=== PATIENT | male | born 1930 | race Caucasian/White ===

== ENCOUNTER 2018-12-09 14:49 | Observation (INO) | payer MEDICARE ==
--- NOTE | 2018-12-09 15:14 | ED ---
Neurological HPI - HPI Summary HPI Summary: An 88 y/o male brought in by [facility] ambulance presents to [facility] with a chief complaint of stroke like symptoms today. The patient reports right sided facial weakness. At triage he rated his pain as a 0/10 in severity. The patient denies a Hx of HTN or DM. He says that he is on medications for GERD and occasionally takes Xanax. - History of Current Complaint Chief Complaint: EDNeurologicalDeficit Stated Complaint: NEW ON SET A FIB STROKE LIKE SYMPTOMS Time Seen by Provider: 12/09/18 15:05 Hx Obtained From: Patient, EMS Onset/Duration: Sudden Onset, Started hours ago, Still Present Timing: Constant Onset Severity: Mild Current Severity: Mild Pain Intensity: 0 Pain Scale Used: 0-10 Numeric Character: Weak - right sided facial weakness Aggravating: Nothing Alleviating: Nothing Associated Signs and Symptoms: Positive: Weakness - right sided facial weakness. Negative: Fever - Allergy/Home Medications Allergies/Adverse Reactions: Allergies Allergy/AdvReac Type Severity Reaction Status Date / Time latex Allergy Unknown Verified 12/09/18 15:02 Reaction Details meloxicam Allergy Unknown Verified 12/09/18 15:02 Reaction Details Penicillins Allergy Unknown Verified 12/09/18 15:02 Reaction Details Sulfa (Sulfonamide Allergy Unknown Verified 12/09/18 15:02 Antibiotics) Reaction Details Home Medications: Home Medications ALPRAZolam [Xanax] 1 tab PO BEDTIME 12/09/18 [History Confirmed 12/09/18] Omeprazole CAP(NF) [PriLOSEC CAP(NF)] 1 cap PO DAILY 12/09/18 [History Confirmed 12/09/18] PMH/Surg Hx/FS Hx/Imm Hx Endocrine/Hematology History: Denies: Hx Diabetes Cardiovascular History: Denies: Hx Hypertension Infectious Disease History: No Infectious Disease History: Denies: Traveled Outside the [place] in Last 30 Days - Family History Known Family History: Negative: Blood Disorder - Social History Alcohol Use: None Substance Use Type: Reports: None Smoking Status (MU): Never Smoked Tobacco Review of Systems Negative: Fever Positive: Other - positive: new onset atrial fibrillation Positive: Weakness All Other Systems Reviewed And Are Negative: Yes Physical Exam - Summary Physical Exam Summary: Appearance: Well appearing, no pain distress Skin: warm, dry, reflects adequate perfusion Head/face: facial droop Eyes: EOMI, JACKELYN ENT: normal Neck: supple, non-tender Respiratory: CTA, breath sounds present Cardiovascular: RRR, pulses symmetrical Abdomen: non-tender, soft Musculoskeletal: normal, strength/ROM intact Neuro: normal, sensory motor intact, A&Ox3 Triage Information Reviewed: Yes Vital Signs On Initial Exam: Initial Vitals Temp Pulse Resp BP Pulse Ox 99.5 F 73 18 144/81 99 12/09/18 14:52 12/09/18 14:52 12/09/18 14:52 12/09/18 14:52 12/09/18 14:52 Vital Signs Reviewed: Yes Diagnostics - Vital Signs Vital Signs Temp Pulse Resp BP Pulse Ox 12/09/18 14:52 99.5 F 73 18 144/81 99 - Laboratory Lab Statement: Any lab studies that have been ordered have been reviewed, and results considered in the medical decision making process. - EKG 15:22 Cardiac Rate: NL - 63 bpm EKG Rhythm: Sinus Rhythm Summary of EKG Findings: EKG at 15:22 showed NSR at 63 bpm, no acute changes. NIH Scale - NIH Scale Level of Consciousness: Alert/Keenly Responsive Ask Patient the Month and His/Her Age: Both Correct Ask Pt to Open/Close Eyes and Summer Internship/Release Non-Paretic Hand: Both Correctly Best Gaze (Only Horizontal Eye Movement): Normal Visual Field Testing: No Visual Loss Facial Paresis-Pt to Smile & Close Eyes or Grimace Symmetry: Minor Paralysis Motor Function - Right Arm: No Drift-Holds 10 Seconds Motor Function - Left Arm: No Drift-Holds 10 Seconds Motor Function - Right Leg: No Drift-Holds 10 Seconds Motor Function - Left Leg: No Drift-Holds 10 Seconds Limb Ataxia-Must be out of Proportion to Weakness Present: Absent Sensory (Use Pinprick to Test Arms/Legs/Trunk/Face): Normal Best Language (Describe Picture, Name Items): No Aphasia Dysarthria (Read Several Words): Normal Extinction and Inattention: No Abnormality Total Score: 1 Course/Dx - Course Course Of Treatment: An 88 y/o male brought in by [facility] ambulance presents to [facility] with a chief complaint of stroke like symptoms today. The patient reports right sided facial weakness. The physical exam revealed facial droop. NIH 1. EKG at 15:22 showed NSR at 63 bpm, no acute changes. Discussed case with Dr. Aguirre, neuro, who will see the patient in the ED. He evaluated the patient in the ED. Discussed case with Dr. Gupta, hospitalist, who accepted the patient for admission. The patient is agreeable with this plan. - Differential Dx Differential Diagnoses Neuro: Positive: Somers's Palsy, Cerebrovascular Accident - Diagnoses Provider Diagnoses: CVA (cerebrovascular accident), Somers's palsy - Physician Notifications Discussed Care Of Patient With: Vanessa Aguirre Time Discussed With Above Provider: 15:14 Instructed by Provider To: MD Will See In ED - Critical Care Time Critical Care Time: 30-74 min - 30 mins Discharge - Sign-Out/Discharge Documenting (check all that apply): Patient Departure - admit Patient Received Moderate/Deep Sedation with Procedure: No - Discharge Plan Condition: Fair Disposition: ADMITTED TO [facility] Referrals: No Primary Care Phys,NOPCP [Primary Care Provider] - - Billing Disposition and Condition Condition: FAIR Disposition: Admitted to [facility] - Attestation Statements Document Initiated by Scribe: Yes Documenting Scribe: Vini Arzate Provider For Whom Scribe is Documenting (Include Credential): Franc Dinh MD Scribe Attestation: IVini, scribed for Franc Dinh MD on 12/09/18 at 1706. Scribe Documentation Reviewed: Yes Provider Attestation: The documentation as recorded by the Vini albarran accurately reflects the service I personally performed and the decisions made by me, Franc Dinh MD Status of Scribe Document: Viewed Consult Consult: At 15:[address] Gupta, hospitalist, who accepted the patient for admission.
[2018-12-09] MEDS ORDERED: Gadobenate* (CONTRAST) 529 MG/ML 10 ML SDV IV ONE (16:39)
[2018-12-09] MEDS ORDERED: ValACYclovir (*) 1 GM TAB PO ONE (17:00)
--- NOTE | 2018-12-09 17:30 | HP ---
CC: Dr. Kwon * HISTORY AND PHYSICAL: DATE OF ADMISSION: 12/09/18 PRIMARY CARE PROVIDER: Dr. Kwon. ATTENDING PHYSICIAN: Dr. Gupta.* (DICTATED BY ALEXEY DANIELLE) CHIEF COMPLAINT: Right facial droop, slurred speech. HISTORY OF PRESENT ILLNESS: Mr. Pineda is an 88-year-old male with no significant past medical history, who presented to [facility] today after stating he "felt lousy" when he awoke. He notes that his approximately 1 year ago. He has been packing up his house and planning to move into assisted living for the last approximately 4 months. He notes that he "overdid it," lifting boxes over these last 4 weeks. He states that he has had right shoulder pain for 4 weeks and has been working with Physical Therapy. He notes difficulty sleeping 2 to 3 nights ago due to shoulder pain. He was eating dinner last night and felt as if he was drooling while he was eating. He then went to bed and woke up and felt as if his right face was drooping. He also notes again that he felt lousy and also mentions trouble forming thoughts and feeling like his speech is slurred as well as a "raw throat sound" to his voice. He felt as if there was a lump in his throat without difficulty swallowing. He went to the ER this morning to [facility] where he received a workup that included EKG, which showed new-onset atrial fibrillation. He also had a CT scan of the head noncontrast that showed no acute intracranial hemorrhage. His NIH Score was 4 in the ER and he was transferred from [facility] to [facility]. At [facility], he continues to have right facial droop, he continues to have very mild slurred speech. The hospitalist team was asked to evaluate the patient for admission. PAST MEDICAL HISTORY: 1. GERD. 2. Hiatal hernia. 3. Depression/anxiety. PAST SURGICAL HISTORY: Hernia x2. HOME MEDICATIONS: 1. Omeprazole 10 mg p.o. daily. 2. Alprazolam 0.5 mg p.o. at bedtime. DRUG ALLERGIES: LATEX, rash; MELOXICAM, unknown; PENICILLIN, rash; SULFA, rash. FAMILY HISTORY: Father from heart condition, unsure what; maternal grandfather, leukemia; paternal grandfather, prostate cancer; father, bladder cancer; sister, lymphoma; mother of old age. Family history negative for CVA, diabetes. SOCIAL HISTORY: The patient denies current and former use of tobacco. The patient rarely uses alcohol, less than monthly. 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 He lives at home alone. His approximately 1 year ago. He is in the process of moving to an assisted living facility, [facility] which he plans to move to next week. In the event that he is unable to make his own medical decisions, he has appointed his niece, Janell Jimenez or his tax attorney, Álvaro Anderstereza, to be his surrogate decision makers. REVIEW OF SYSTEMS: A 10-point review of systems was performed and all the pertinent positives and negatives are in the HPI. All other systems are negative. PHYSICAL EXAMINATION GENERAL: Mr. Pineda is a well-developed, well-nourished, healthy, elderly male , who appears younger than his stated age. He is sitting comfortably in bed with the head of bed elevated. He has a noticeable right facial droop upon entering the room. He is cooperative, appropriate, and pleasant. VITAL SIGNS: Temperature 99.5 temporal, heart rate 72, respiratory rate 18, oxygen saturation 96% on room air, blood pressure 124/72. HEENT: Visual ny grossly intact. PERRL. Extraocular movements intact. Nonicteric sclerae. The right eyebrow moves, but asymmetrically. Hearing grossly intact. Oral mucous membranes are moist without lesions. Head is normocephalic, atraumatic. Right facial droop is present. NECK: Full range of motion. Trachea at midline. There is tenderness to palpation to the right side of the neck. PULMONARY: Symmetrical chest expansion without use of accessory muscles. Lungs are clear to auscultation without rhonchi, wheezes, or rales. CARDIOVASCULAR: Regular rate and rhythm with S1, S2 present without murmurs, rubs, clicks, or gallops. There is no JVD. ABDOMEN: Bowel sounds noted in all quadrants. The abdomen is soft. There is no tenderness to palpation. MUSCULOSKELETAL: Lower extremities with full range of motion without pain or deformities. Left upper extremity within normal limits. Right upper extremity with tenderness to palpation to the shoulder area and scapular area, painful range of motion with greater than 90-degree abduction. EXTREMITIES: Skin is warm and smooth bilaterally without clubbing, cyanosis, or edema. Radial and pedal pulses palpable. NEURO: The patient is awake. He is alert and oriented x3. He has a right facial droop with asymmetrical movements on the right side. Otherwise, cranial nerves are grossly intact. He is able to move all of his extremities with motor strength of 5/5 in the upper and lower extremities. Romberg intact. Steady gait with no impairments. ABY intact. DIAGNOSTIC STUDIES/LAB DATA: Obtained from [facility]. Chest x-ray: Mild right basilar discoid atelectasis, but no focal consolidation, pleural effusion , or significant pulmonary vascular congestion. CT head, impression: No acute intracranial hemorrhage, significant mass effect , or large infarct. Mild diffuse cerebral atrophy and mild probable microvascular ischemic changes. Laboratory data: WBC 9.18, RBC 4.55, HGB 13.6, HCT 42.5, MCV 93.4. Creatinine 1.2. EKG from [facility]: Normal sinus rhythm, rate 63. ASSESSMENT AND PLAN: Mr. Pineda is an 88-year-old male with no significant past medical history, who presented to the ER today with complaints of right facial droop and slurred speech. He was found to have a negative CT of the head , but an EKG that reveals atrial fibrillation. The patient will be admitted observation for: 1. Right facial droop. This appears to be more similar to Somers palsy, but cerebrovascular accident cannot be ruled out at this point. CT of the head from [facility] was negative. We will continue stroke workup with echo with bubble study, MRI of the head, MRA of the head and neck. Neuro checks q.4 hours ordered. Lipid panel, hemoglobin A1c, and B12 have been ordered. Neurology has been consulted. Dr. Aguirre recommends treatment for Somers palsy with prednisone 60 mg x7 days, valacyclovir 1000 q.8 hours x7 days. He does not recommend aspirin at this point as if this does represent stroke, it is likely cardioembolic. 2. Gastroesophageal reflux disease. Continue omeprazole. 3. Depression/anxiety. Continue alprazolam. 4. DVT prophylaxis: The patient scores 3 and is high risk. He will be placed on SCDs. 5. Code status: Do not resuscitate. We will update MOLST. TIME SPENT: Approximately 60 minutes was spent on this admission, greater than half that time was spent with the patient obtaining history, performing physical , and reviewing the plan of care. The case has been reviewed with my attending, Dr. Gutpa, who is in agreement with the plan of care. ALEXEY DANIELLE [id number]/[facility] #: [id number] PADMINI
--- NOTE | 2018-12-09 18:20 | CONS ---
NEUROLOGY CONSULTATION NOTE: DATE OF CONSULT: 12/09/18 CONSULTING PROVIDER: ALEXEY Denny REASON FOR CONSULT: Facial weakness. CHIEF COMPLAINT: Facial weakness and slurred speech. 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 The patient is and lives alone. He is getting ready to move to an assisted living facility, . He has been extremely stressed as he is moving old furniture and books around his house. Yesterday, he was drinking water when suddenly at approximately 8 p.m. noticed that he was spilling water from the side of his mouth. He has never had any similar symptoms in the past. He also noticed that he was drooling. He was having trouble chewing. He woke up this morning and noticed his voice was weak and sloppy. He has no other weakness. He denied any paresthesias. He denied any new vision loss, but does have chronic blurry vision. He is complaining of a 3- 4 day headache that is mostly localized to the right frontal and temporal region radiating to the occipital region. The headache is intermittent and he is asymptomatic at this time. The headache is usually associated with a rash, which he has been getting on and off for the last 1 month. He denied any vesicular rash. He denied any exposure to ticks. The patient had a CT of the head at [facility] that was reported to us to show no evidence of intracranial abnormality. He was found to have new-onset atrial fibrillation. The patient has been complaining of chronic fatigue for the past 4 months that worsened over the last 2 weeks. He also complains of right shoulder pain, which he has been receiving physical therapy for for the past 2 weeks. NIH Stroke Scale is 2, 1 for facial weakness and 1 for slight slurred speech. PAST MEDICAL HISTORY: New-onset atrial fibrillation, anxiety, GERD. MEDICATIONS: 1. Alprazolam 0.5 tablet at bedtime. 2. Omeprazole 1 capsule p.o. daily. ALLERGIES: LATEX, MELOXICAM, PENICILLIN, SULFA. FAMILY HISTORY: No family history of stroke or seizures. SOCIAL HISTORY: The patient denied any tobacco or alcohol use. He is . He was for 47 years. He has 2 children. REVIEW OF SYSTEMS: A 14-point review of systems was obtained and otherwise negative except for what was mentioned in the HPI. PHYSICAL EXAM: Vitals: Temperature of 97.8, pulse of 72, respiratory rate of 18, oxygen saturation of 98%, blood pressure of 124/72. General: Well- nourished, well- developed, elderly man, who is frail, but in no acute distress. Head: Normocephalic, atraumatic. Eyes: Conjunctivae/corneas are clear. ENT Examination: There is no evidence of any vesicular rash on otoscopic examination. Neck is supple and symmetrical with no carotid bruits. Lungs are clear to auscultation bilaterally, nonlabored breathing. Cardiovascular: Regular rate and rhythm with normal S1, S2. Extremities: Normal range of motion with no cyanosis. Skin: No skin lesions or lacerations. Psych: Affect is broad and normal mood. Neurological Examination: Mental Status: Awake, alert, and oriented to person, place, time, and general circumstances. He has slight slurring of speech, but it is mostly due to the facial droop on the right side and not because of a spastic dysarthria. Language including expression, naming, repetition, and comprehension were assessed and found to be normal. Cranial Nerves: Normal confrontation testing bilaterally. Pupils are mid range and reactive to light. Normal consensual response. Extraocular muscles are intact. Sensation is intact on the forehead , cheeks, and jaw region bilaterally. He has a right facial droop with weakness in eyelid closure on the right, but slightly also on the left. He has loss of wrinkling with forehead leiva on the right, weakness on the platysma muscle on the right. He is able to hear throughout the history process. Symmetrical palatal elevation. Normal strength against shoulder resistance. Tongue is symmetrical and midline with no atrophy or fasciculation. Motor Examination: No abnormal movements or pronator drift. Normal bulk and tone throughout. 5/5 strength in the upper and lower extremities bilaterally. Reflexes: Right/left, brachioradialis 2/2, biceps 2/2, triceps 3/3, patella 3/3 , ankle 2/2, plantar flexor/flexor. Initially, it was thought that his plantar had some spontaneous extension on the right, but during the examination over and over, it is mostly flexor and he is extending his toes purposefully rather than pathologically. Sensation is intact throughout. He has normal vibration at the medial malleolus. Coordination: Normal [id number] and rapid alternating movements bilaterally. Gait: Wide based, no ataxia, did not require any assistance. DIAGNOSTIC STUDIES/LAB DATA: This was not available as the patient was transferred from an outside facility. 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 On examination, the facial weakness is consistent with a lower motor neuron 7th nerve palsy. The patient was also found to be in atrial fibrillation and was admitted for further evaluation. 1. Somers's palsy causing right facial droop - I recommend starting the patient on prednisone 60 mg daily for 7 days as well as valacyclovir 1000 mg every 8 hours for the next 7 days. Please monitor for any possible vesicular rash that he may develop. Please start the patient on eye drops and nocturnal ointments to keep his eyes moist, especially when he is sleeping. Discuss eye care with the patient, especially when he sleeps, to make sure he tapes his right eye closed to prevent any corneal scarring. 2. New-onset atrial fibrillation. Further workup by the primary team. The patient may have been in atrial fibrillation for the past few months given that he has been complaining of increased fatigue. Please order vitamin B12 level. He is going to have an MRI of the brain and MRA head and neck as it has been already ordered and the patient is currently getting the study. If there is evidence of symptomatic or asymptomatic embolic stroke, the patient may need to be on anticoagulation therapy. 3. Hyperreflexia and chronic neck pain. The patient does not complain of any weakness or incontinence. I recommend outpatient evaluation for cervical spondylosis and myelopathy. He should discuss this with his PCP. We discussed fall precautions. He should discuss this with his PCP. 4. History of right shoulder pain. Continue physical therapy as an outpatient. If the MRI is negative, there are no further recommendations from the neurology standpoint. No followup is needed. Please contact us for any questions or concerns. [id number]/[facility] #: [id number] ADDENDUM: 20:08: reviewed the MRI brain and MRA head and neck. There is no evidence for acute stroke or silent acute cardio emboli. He has diffuse small white matter changes consistent with chronic small vessel ischemic changes. He will most likely require at least aspirin for his atrial fibrillation. Defer further management to the primary tea. Neurology will sign off but please call us for any questions or concerns. PADMINI
[2018-12-09] MEDS: predniSONE TAB* 20 MG PO SCH (18:38)
--- NOTE | 2018-12-09 18:47 | ECHO ---
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 History: Atrial fibrillation. New onset. Conclusions Summary: 1. Left ventricle: The cavity size is normal. Wall thickness is normal. Systolic function is normal. The estimated ejection fraction is 55-60%. 2. Right ventricle: The cavity size is mildly dilated. 3. Left atrium: The atrium is mildly dilated. 4. Atrial septum: Bubble study was negative 5. Mitral valve: There is mild to moderate regurgitation, with multiple jets. 6. Aortic valve: There is mild regurgitation. 7. Tricuspid valve: There is mild regurgitation. 8. Aortic root: The aortic root is upper normal in size. 9. Ascending aorta: The ascending aorta is mildly dilated. 10. No previous echocardiogram available. Study data: Transthoracic echocardiogram. Procedure: Transthoracic echocardiography was performed. Image quality was fair. A bubble study was performed. Complete 2D, spectral Doppler, and color flow Doppler. Location: Bedside. Patient status: Inpatient. Patient room number: 440. Rhythm: Normal sinus rhythm with PVC's. Findings Left ventricle: The cavity size is normal. Wall thickness is normal. Systolic function is normal. The estimated ejection fraction is 55-60%. Wall motion is normal; there are no regional wall motion abnormalities. Features are consistent with a pseudonormal left ventricular filling pattern, with concomitant abnormal relaxation and increased filling pressure (grade 2 diastolic dysfunction). Right ventricle: The cavity size is mildly dilated. Systolic function is normal. Systolic pressure is within the normal range. Left atrium: The atrium is mildly dilated. Right atrium: The atrium is normal in size. Atrial septum: Bubble study was negative Images 12 and 13. Mitral valve: The leaflets are mildly thickened. There is no evidence of stenosis. There is mild to moderate regurgitation, with multiple jets. Aortic valve: The valve is trileaflet. The leaflets are mildly thickened. There is no evidence of stenosis. There is mild regurgitation. Tricuspid valve: The leaflets are normal thickness. There is no evidence of stenosis. There is mild regurgitation. Pulmonic valve: The leaflets are normal thickness. There is no evidence of stenosis. There is trivial regurgitation. Aorta: Aortic root: The aortic root is upper normal in size. Ascending aorta: The ascending aorta is mildly dilated. Aortic arch: The aortic arch is appears normal. Pericardium: There is no pericardial effusion. Pulmonary arteries: Not well visualized. Systemic veins: Inferior vena cava: The vessel is normal in size. The respirophasic diameter changes are in the normal range (>= 50%). Measurements Left ventricle Value Ref Aortic valve Value Ref LAURYN, LAX 4.8 cm 4.2 - 5.8 Kevin diam, ED 2.1 cm ----- ESD, LAX 2.6 cm 2.5 - 4.0 Kevin diam/bsa, ED 1.1 cm/m^2 ----- FS, LAX (H) 45 % 25 - 43 Peak v, S 1.28 m/sec ----- PW, ED, LAX 1.0 cm 0.6 - 1.0 VTI, S 25.2 cm ----- FS (H) 45 % 25 - 43 Mean grad, S 3.0 mm Hg ----- PW, ED 1.0 cm 0.6 - 1.0 Peak grad, S 7.0 mm Hg ----- E', lat kevin, TDI (L) 9.9 cm/sec >=10.0 LVOT/AV, VTI ratio 0.87 -- --- E/e', lat kevin, 8 TDI Mitral valve Value Ref E', med kevin, TDI 7.7 cm/sec >=7.0 Peak E 0.8 m/sec -- --- E/e', med kevin, 10 Peak A 0.69 m/sec ----- TDI Decel time 317 ms ----- E', avg, TDI 8.8 cm/sec Peak grad, D 2.6 mm Hg ----- E/e', avg, TDI 9 <=14 Peak E/A ratio 1.2 -- --- LVOT Value Ref Pulmonic valve Value Ref Peak rosalinda, S 0.95 m/sec Peak v, S 0.81 m/sec ----- VTI, S 22.0 cm Peak grad, S 3.0 mm Hg ----- Mean grad, S 2 mm Hg Tricuspid valve Value Ref Ventricular septum Value Ref TR peak v 2.5 m/sec <=2.8 IVS, ED 1.0 cm 0.6 - 1.0 Peak RV-RA grad, S 25 mm Hg ----- Right ventricle Value Ref Aortic root Value Ref LAURYN, LAX 3.1 cm Root diam 3.6 cm <4.1 LAURYN minor ax, A4C (H) 4.4 cm 1.9 - 3.5 mid Ascending aorta Value Ref Pressure, S 28 mm Hg AAo AP diam, S 4.2 cm ----- Left atrium Value Ref Aortic arch Value Ref AP dim, ES (H) 4.20 cm 3.00 - Arch diam 2.9 cm ----- 4.00 ML dim, A4C 4.3 cm Decending aorta Value Ref SI dim, A4C 5.8 cm Bindu peak rosalinda 0.63 m/sec ----- Vol/bsa, ES, 1-p 32 ml/m^2 12 - 37 A4C Pulmonary artery Value Ref Vol/bsa, ES, A/L 31 ml/m^2 16 - 34 Pressure, S 25.0 mm Hg ----- Right atrium Value Ref Inferior vena cava Value Ref SI dim, ES 5.1 cm 3.4 - 5.3 Diam 1.7 cm ----- ML dim, ES, A4C 4.4 cm 2.6 - 4.4 SI dim, ES, A4C 4.9 cm 3.4 - 5.3 SI dim/bsa, ES, 2.6 cm/m^2 1.8 - 3.0 A4C Estimated RAP 3 mm Hg Legend: (L) and (H) dashawn values outside specified reference range. Prepared and electronically signed by Rosendo Bhakta MD 12/09/2018 18:47
[2018-12-09] MEDS ORDERED: ALPRAZolam TAB* 0.5 MG PO SCH (21:00)
[2018-12-10] MEDS: ValACYclovir (*) 1 GM TAB PO SCH ×3 (00:39→16:06)
[2018-12-10 05:34] LABS: ABS Lymphocytes 0.8 10^3/ul (1.0-4.8); ABS Monocytes 0.1 10^3/ul (0-0.8); ABS Neutrophils 5.3 10^3/ul (1.5-7.7); Hematocrit 37 % (42-52); Hemoglobin 12.3 g/dL (14.0-18.0); Lymphocyte % 13.7 %; Mean Corpuscular HGB Conc 34 g/dL (31-36); Mean Corpuscular Hemoglobin 31 pg (27-31); Mean Corpuscular Volume 91 fL (80-94); Mean Platelet Volume 6.9 fL (7.4-10.4); Nucleated Red Blood Cells % 0.1; Platelet Count 365 10^3/uL (150-450); Red Blood Count 4.04 10^6 /uL (4.18-5.48); Red Cell Distribution Width 13 % (10-15); White Blood Count 6.2 10^3/uL (3.5-10.8)
[2018-12-10 05:55] LABS: BUN/Creatinine Ratio 26.7 (8-20); Calcium 8.6 mg/dL (8.6-10.3); EGFR African American 119.5 (>60); EGFR Non-African American 98.7 (>60); HDL Cholesterol 21.9 mg/dL; Potassium 4.4 mmol/L (3.5-5.0)
[2018-12-10] MEDS ORDERED: Pantoprazole TAB * 40 MG TAB PO SCH (09:00)
[2018-12-10] MEDS: predniSONE TAB* 20 MG PO SCH (09:28)
--- NOTE | 2018-12-10 13:42 | DS ---
CC: Dr. Kwon * DISCHARGE SUMMARY: DATE OF ADMISSION: 12/09/18 DATE OF DISCHARGE: 12/10/18 PRIMARY CARE PROVIDER: Dr. Kwon. CONSULTING PHYSICIAN: Dr. Aguirre, Neurology. ATTENDING PHYSICIAN: Dr. Cantu * (dictated by Dang Roman NP). PRIMARY DIAGNOSES: 1. Somers palsy. 2. New-onset atrial fibrillation. 3. Hyperreflexia and chronic neck pain. 4. History of right shoulder pain. SECONDARY DIAGNOSES: 1. Gastroesophageal reflux disease. 2. Hiatal hernia. 3. Depression/anxiety. CONSULTATIONS WHILE IN THE HOSPITAL: Neurology, Dr. Aguirre. STUDIES WHILE IN THE HOSPITAL: 1. Brain MRI, impression: There are multiple foci of elevated T2/FLAIR signal within the periventricular and subcortical white matter. While these findings are nonspecific, they can be seen in association with migraine headache, as a sequela of previous infection or inflammation, and small vessel ischemia. Demyelinating disease is also within differential, but is considered less likely in the absence of appropriate clinical presentation. Diffuse involutional change. No restricted diffusion to suggest acute infarct. 2. Head MRA, impression: No aneurysm, vascular malformation, occlusion, or stenosis of the visualized intracranial circulation. 3. Neck MRA, impression: No intracranial carotid artery stenosis by NASCET criteria. 4. Transthoracic echo, impression: Left ventricle: The cavity size is normal. Wall thickness is normal. Systolic function is normal. The estimated ejection fraction is 55% to 60%. Right ventricle: The cavity is mildly dilated. Left atrium: The atrium is mildly dilated. Atrial septum: Bubble study is negative. Mitral valve: There is [id number] regurgitation with multiple jets. Aortic valve: There is mild regurgitation. Tricuspid valve: There is mild regurgitation. Aortic root: The aortic root is upper normal in size. Ascending aorta: The ascending aorta is mildly dilated. No previous echocardiogram available to compare. 5. EKG: Sinus rhythm. No ST changes. DISCHARGE HOME MEDICATIONS: Continued home medications: 1. Omeprazole 1 cap p.o. daily. 2. Xanax 1 tab p.o. at bedtime. New home medications: 1. Prednisone 60 mg daily for 7 days. 2. Valacyclovir 1000 mg every 8 hours for the next 7 days. HISTORY OF PRESENT ILLNESS/HOSPITAL COURSE: Mr. Pineda is an 88-year-old male with no significant past medical history, who presented to the emergency room at [facility] on 12/09/18 "feeling lousy." Please see history and physical dictated by ALEXEY Denny, for complete summary of events leading up to hospitalization, but in short, the patient felt lousy and was reporting drooling while eating and right face drooping. While in the emergency room at [facility], he underwent an EKG, which revealed possible atrial fibrillation. In addition, he had a CT of his head without contrast that revealed no acute intracranial pathology. He was transferred to [facility] for further evaluation and treatment. While in the emergency room here, the patient had repeat EKG, which showed normal sinus rhythm. He was noted to have a right facial droop that was more similar to Somers palsy, but since the CVA could not be ruled out at that point, he was admitted and Neurology was consulted. During this hospital stay, the patient underwent multiple imaging as mentioned above including an echocardiogram. The patient was evaluated by Neurology and studies were reviewed. It was concluded that there was no evidence of acute stroke or silent acute cardioemboli; therefore, it was decided that the patient's right facial droop was most likely secondary to Somers palsy; therefore, he was placed on prednisone and valacyclovir. Since his admission, the patient's right eye and right facial droop has already been improving. The patient has been having no difficulty swallowing. The patient is having no difficulty finding words. The patient is having no weakness, dizziness, visual changes, headache, gait instability, chest pain, palpitations , shortness of breath. In regards to possibly new atrial fibrillation seen on EKG at [facility] ED, this EKG has been reviewed by myself and my attending and it is questionable whether this is actual atrial fibrillation; therefore, we will hold off on starting the patient on an aspirin. We will recommend the patient follow up with his primary care provider to discuss further evaluation such as an event monitor. In addition, during this hospital stay, the patient also had lipids obtained, which revealed a mildly elevated LDL at 107, but once again we will hold off on starting a statin as this was not ruled to be a CVA or TIA. We will defer starting statin to his primary care provider. The patient is stable for discharge home today. REVIEW OF SYSTEMS: A 14-point review of systems was completed and all were negative. As mentioned above, the patient denies visual changes, difficulty swallowing, unilateral weakness, general weakness, numbness or tingling, gait instability, headache, chest pain, shortness of breath, palpitations. PHYSICAL EXAMINATION: Vital Signs: Temp 97.8, HR 77, RR 20, O2 saturation 96% on room air, BP 125/67. General: Mr. Pineda is an 88-year-old male, who is sitting in bed. Appears to be in no acute distress. Appears stated age. HEENT : EOMs intact. PERRLA. Oral mucosa is moist without lesion. Posterior pharynx is clear. Neck: Supple. No lymphadenopathy. Cardiac: S1, S2 present. Regular rate and rhythm. No murmurs, rubs, or gallops. Respiratory: Lungs are clear to auscultation. No wheezes, rhonchi, or rales. Good aeration. Abdomen: Soft, nontender. Bowel sounds normoactive. Extremities: No edema. No clubbing or cyanosis. Pedal pulses +2 bilaterally. Musculoskeletal: No pain or deformities. Skin: Skin is grossly intact. Neuro : The patient has trace right-sided facial droop and trace decrease in wrinkling of forehead on the right side. Remainder of the cranial nerves are grossly intact. No focal deficits or weakness. Coordination intact. Sensation intact. Strength is 5/5 in the upper and lower extremities. DIAGNOSTIC STUDIES/LAB DATA: WBC 6.2, hemoglobin 12.3, hematocrit 37, platelets 365. Sodium 137, potassium 4.4, chloride 110, carbon dioxide 21, BUN 20, creatinine 0.75, glucose 156. Triglycerides 76, total cholesterol 144, LDL 107, HDL 21.9. Vitamin B12 is 1272. Hemoglobin A1c is pending. DISCHARGE PLAN/FOLLOWUP: 1. Somers palsy: As mentioned above in HPI, it is suspected that the patient's symptoms were secondary to Somers palsy. It should also be mentioned that the patient reports he has been feeling fairly weak over the past several weeks and had gone to his primary care with a rash on the right side of his body that was painful that has since resolved. The patient will be continued on prednisone 60 mg daily for a total of 7 days. The patient will also be continued on valacyclovir 1000 mg every 8 hours for the next 7 days. The patient has been encouraged to follow up with his primary care next week. The patient should continue to use eye drops and nocturnal ointments to keep eyes moist. The patient should tape his right eye closed to prevent any corneal scarring. 2. New-onset atrial fibrillation: As mentioned above, myself and my attending have reviewed the EKG obtained at [facility] and it is questionable whether this is actual atrial fibrillation; therefore, we are holding off on starting the patient on an aspirin. I would encourage the patient to follow up with his primary care and discuss possible cardiology referral with possible event monitor and further evaluation. 3. Hyperreflexia and chronic neck pain: The patient does not complain of any weakness or incontinence. Dr. Aguirre is recommending evaluation of cervical spondylosis or myelopathy. Dr. Aguirre is recommending that he discuss this with his PCP. 4. Right shoulder pain: This has been ongoing for the patient as he has been packing up his belongings in his home and he has been working with Physical Therapy. The patient should continue physical therapy. 5. GERD: The patient should continue his PPI. 6. Depression/anxiety: The patient should continue his Xanax at bedtime. 7. Followup: The patient should follow up with his primary care next week. The patient and his primary care should discuss possible referral for further evaluation of possible atrial fibrillation and myelopathy or cervical spondylosis as mentioned above. 8. Education: The patient has been educated on signs and symptoms of new or worsening conditions and when to return to the emergency department. The patient stated understanding. This is a summarized report of a complex medical history and hospital stay. For further details, please see entire medical record. TIME SPENT: Approximately 35 minutes was spent on this discharge, greater than half that time was spent [id number] with the patient discussing discharge plans and instructions. This plan has been discussed with my attending, Dr. Cantu, who is in agreement with my plan of care. DANG ROMAN, SHANNAN [id number]/[facility] #: [id number] PADMINI
[2018-12-10 16:25] VITALS: BP 116/63
== END 2018-12-10 19:00 | disposition home or self-care (01) ==
LOC: ED 14:49 → MEDTELE 18:10
PROVIDERS: ADMIT Internal Medicine; ATTEND Internal Medicine
DX: G51.0 Bell's palsy (principal); I48.91 Unspecified atrial fibrillation; M54.2 Cervicalgia; G89.29 Other chronic pain; M25.511 Pain in right shoulder; K21.9 Gastro-esophageal reflux disease without esophagitis; K44.9 Diaphragmatic hernia without obstruction or gangrene; F41.9 Anxiety disorder, unspecified; F32.9 Major depressive disorder, single episode, unspecified; R47.81 Slurred speech; I51.7 Cardiomegaly; I34.0 Nonrheumatic mitral (valve) insufficiency; I07.1 Rheumatic tricuspid insufficiency; Z79.899 Other long term (current) drug therapy; Z88.0 Allergy status to penicillin; Z88.2 Allergy status to sulfonamides; Z88.8 Allergy status to other drugs, medicaments and biological substances; R51 Headache; R53.1 Weakness
CPT/HCPCS: 36415; 70544; 70549; 70551; 80048; 80061; 82607; 83036; 83735; 85025; 93005; 93306; 99284; A9270-GY; A9577; G0378; J7512